=== PATIENT | female | born 1965 | race Caucasian/White ===

== ENCOUNTER 2017-07-13 11:20 | Emergency (ER) | payer MEDICAID ==
[~2017-07-13] VITALS: Ht 152.4 cm; Wt 82.0 kg
[~2017-07-13 11:20] MED LIST: AMOX500T PO; HYDR-3583 PO; METO50TA PO
[2017-07-13 11:23] VITALS: BP 160/74; PULSE 78; RESP 16; TEMP 98.7; O2SAT 98
[2017-07-13] MEDS ORDERED: BACT800T5 PO (11:58)
--- NOTE | 2017-07-13 11:58 | PD ---
HPI Chief Complaint: Complaint Time Seen by Provider: 11:39 Travel History International Travel<30 days: No Contact w/Intl Traveler<30days: No Traveled to known affect area: No History of Present Illness HPI 52-year-old female complains of dysuria or urinary frequency and hematuria. She feels as though there might be a kidney stone in the bladder. No fever or vomiting. Duration about 1 day. No similar prior episodes. Onset sudden. PFSH Past Medical History Cardiovascular Problems: Yes (HTN) Hypertension: Yes ?: Not Past Surgical History Section: Yes Social History Alcohol Use: No Tobacco Use: No Substance Use: No Allergies-Medications (Allergen,Severity, Reaction): Coded Allergies: aspirin (Unverified Allergy, Intermediate, Rash, 07/13/17) meloxicam (Unverified Allergy, Intermediate, Nausea/Vomiting, 07/13/17) Reported Meds & Prescriptions Reported Meds & Active Scripts Active Bactrim DS (Sulfamethoxazole-Trimethoprim) 800-160 Mg Tab 1 Tab PO BID Reported Metoprolol Tartrate 50 Mg Tab 50 Mg PO BID Review of Systems General / Constitutional: No: Fever Cardiovascular: No: Chest Pain or Discomfort Respiratory: No: Shortness of Breath Gastrointestinal: No: Nausea, Vomiting Physical Exam Narrative GENERAL: 52-year-old female well-nourished well-developed pleasant no acute distress SKIN: Warm and dry. HEAD: Atraumatic. Normocephalic. EYES: Pupils equal and round. No scleral icterus. No injection or drainage. ENT: No nasal bleeding or discharge. Mucous membranes pink and moist. NECK: Trachea midline. No JVD. CARDIOVASCULAR: Regular rate and rhythm. RESPIRATORY: No accessory muscle use. Clear to auscultation. Breath sounds equal bilaterally. GASTROINTESTINAL: Abdomen soft, non-tender, nondistended. Hepatic and splenic margins not palpable. No flank tenderness to percussion. MUSCULOSKELETAL: Extremities without clubbing, cyanosis, or edema. No obvious deformities. NEUROLOGICAL: Awake and alert. No obvious cranial nerve deficits. Motor grossly within normal limits. Five out of 5 muscle strength in the arms and legs. Normal speech. PSYCHIATRIC: Appropriate mood and affect; insight and judgment normal. Data Data Last Documented VS Vital Signs Date Time Temp Pulse Resp B/P (MAP) Pulse Ox O2 Delivery O2 Flow Rate FiO2 07/13/17 11:23 98.7 78 16 160/74 (102) 98 Room Air Orders Orders Urinalysis - C+S If Indicated (07/13/17 11:42) Ed Urine Pregnancytest Poc (07/13/17 11:42) Urine Culture (07/13/17 11:40) Ed Discharge Order (07/13/17 12:27) Labs Laboratory Tests Test 07/13/17 11:40 Urine Color YELLOW Urine Turbidity HAZY Urine pH 6.0 Urine Specific [place] 1.024 Urine Protein 30 mg/dL Urine Glucose (UA) NEG mg/dL Urine Ketones NEG mg/dL Urine Occult Blood MOD Urine Nitrite POS Urine Bilirubin NEG Urine Urobilinogen LESS THAN 2.0 MG/DL Urine Leukocyte Esterase LARGE Urine RBC 138 /hpf Urine WBC /hpf Urine WBC Clumps OCC Urine Squamous Epithelial Cells 3 /hpf Urine Bacteria FEW /hpf Urine Mucus MOD /lpf Microscopic Urinalysis Comment CULTURE INDICATED MDM Medical Decision Making Medical Screen Exam Complete: Yes Emergency Medical Condition: Yes Medical Record Reviewed: Yes Differential Diagnosis Constipation, Gastritis, Acute Cholecystitis, Biliary Colic, Pancreatitis, MONTOYA , Hepatitis, Bowel Obstruction, Cystitis, Mesenteric Ischemia, AAA, Appendicitis , Renal Stone/Hydronephrosis, GERD, perforated viscous Narrative Course UA UTI present U preg negative Cipro script All questions answered to satisfaction of participatory individuals. Diagnosis Primary Impression: Cystitis Med/Other Pt SpecificInfo: Prescription(s) given Scripts Sulfamethoxazole-Trimethoprim (Bactrim DS) 800-160 Mg Tab 1 TAB PO BID for Infection, #6 TAB 0 Refills Prov: Del Young MD 07/13/17 Disposition: 01 DISCHARGE HOME Condition: Stable Del Young MD Jul 13, 2017 11:58
[2017-07-13 12:12] LABS: BACTERIA, URINE FEW /hpf; BILIRUBIN, URINE NEG (NEG); BLOOD, URINE MOD (NEG); GLUCOSE,URINE NEG (NEG); KETONE, URINE NEG (NEG); MUCUS URINE MOD /lpf (OCC); NITRITE,URINE POS (NEG); SQUAMOUS EPITHELIAL CELL URINE 3 /hpf (0-5); URINE COLOR YELLOW (YELLW/STRAW); URINE LEUKOCYTE ESTERASE LARGE (NEG); WHITE BLOOD CELL CLUMPS OCC
[2017-07-13] MEDS ORDERED: CIPR-9 PO (12:37)
== END 2017-07-13 12:57 | disposition home or self-care (01) ==
LOC: NEPD 11:20
DX: N30.91 Cystitis, unspecified with hematuria (principal); I10 Essential (primary) hypertension
CPT/HCPCS: 81001; 84703; 87077; 87086; 87186; 99283